=== PATIENT | female | born 1980 | race Caucasian/White ===

== ENCOUNTER 2019-11-17 11:23 | Emergency (ER) | payer SELFPAY ==
[2019-11-17 11:27] VITALS: BP 114/76; PULSE 75; RESP 18; TEMP 36.4; O2SAT 98; BMI 26.1
--- NOTE | 2019-11-17 11:37 | ED_ITS ---
HPI - Allergic Reaction General: Chief complaint: Allergic Reaction Stated complaint: poss poison sandrita Time Seen by Provider: 11/17/19 11:28 Source: patient Mode of arrival: ambulatory Limitations: no limitations History of Present Illness: HPI narrative: Patient is a 38-year-old female who states she is exposed to poison sandrita roughly 1 week ago. Patient states she has had poison sandrita now that spread to her face arms back and armpits. She states is very pruritic. Onset (ago): day(s) Associated symptoms: Deny abdominal pain, nausea or vomiting Severity: moderate Review of Systems Const: Denies: fever(s), chills, body aches or change in appetite Eyes: Denies: blurry vision or eye discomfort ENMT: Denies: throat pain or dental pain Card: Denies: chest pain Resp: Denies: dyspnea GI: Denies: abdominal pain, nausea, vomiting or diarrhea : Denies: dysuria Musc: Denies: neck pain or back pain Skin/Breast: Reports: rash Neuro: Denies: headache(s) Psych: Denies: depression Ari/Lymph: Denies: easy bruising All/Imm: Denies: urticaria PFSH ED PFSH: Social History Smoking and tobacco status: never smoked Physical Exam Const: COMMON NORMALS: no acute distress, patient oriented x3 and healthy appearing HENMT: COMMON NORMALS: normocephalic and atraumatic HEAD & SCALP: normocephalic and atraumatic Eye: COMMON NORMALS: Equal, round and reactive pupils present and EOMs intact bilaterally PUPIL: Yes Equal, round and reactive pupils present Neck/C-Spine: COMMON NORMALS: full ROM and supple Chest: COMMONS NORMALS: normal inspection of the chest and normal palpation of entire chest wall Resp: COMMON NORMALS: normal respiratory effort, No retractions, No use of accessory muscles and clear to auscultation bilaterally AUSCULTATION: clear to auscultation bilaterally Cardio: COMMON NORMALS: regular rate, regular rhythm and No murmurs present (Cardio) RATE: regular rate RHYTHM: regular rhythm GI: COMMON NORMALS: Normal to inspection, nondistended, normoactive bowel sounds present, Soft to palpation, non-tender and no masses PALPATION: Yes Soft to palpation Extremity: COMMON NORMALS: normal to inspection and full ROM Neuro: COMMON NORMALS: patient oriented x3, moves all extremities and no focal motor deficits Psych: COMMON NORMALS: mental status grossly normal, Normal thought process present and cooperative THOUGHT PROCESS: Normal thought process present Skin: COMMON NORMALS: no wounds NARRATIVE SKIN EXAM: Maculopapular rash to face trunk and arms consistent with poison sandrita. Course Vital Signs: Vital signs: Vital Signs Temperature 97.5 F L 11/17/19 11:27 Pulse Rate 75 11/17/19 11:27 Respiratory Rate 18 11/17/19 11:27 Blood Pressure 114/76 11/17/19 11:27 Pulse Oximetry 98 11/17/19 11:27 MDM - Allergic Reaction MDM Narrative: Medical decision making narrative: Patient presents here with poison sandrita will start patient on steroids and she is stable for discharge. She is to return if worsening. Discharge Plan Discharge Patient Disposition: Home, Self-Care Clinical Impression: Poison sandrita Condition: Stable Prescriptions: New prednisone 10 mg tablets,dose pack See Rx Instructions .ROUTE .COMPLEX Qty: 21 RF: 0 Discharge Orders: Discharge Order (Routine); Ordered 11/17/19 Ordered By: Agustín Hinson Discharge Diet: Advance as tolerated Discharge Activity: Resume usual activity Patient Instructions: Poison Sandrita (ED) Discharge Date/Time: 11/17/19 11:43 Coding Level of Care Code ED Heavy Equipment Operating Engineer for Vidhya Riojas
[2019-11-17] MEDS: diphenhydrAMINE 50 mg Capsule PO (11:38)
[2019-11-17] MEDS: predniSONE 20 mg Tablet 60 MG PO (11:38)
[2019-11-17 11:43] VITALS: BP 108/67; PULSE 75; RESP 16; O2SAT 100
== END 2019-11-17 11:43 | disposition home or self-care (01) ==
LOC: ER 11:38
PROVIDERS: Emergency Provider Emergency Medicine
DX: L23.7 Allergic contact dermatitis due to plants, except food (principal)
CPT/HCPCS: 12345; 99281; 99283; J7512; Q0163

== ENCOUNTER → 2023-06-20 09:27 | Outpatient (BNVA) | payer MEDICAID, SELFPAY | PROVIDERS: Visit Provider Nurse Practitioner Family | DX: R68.89 Other general symptoms and signs (principal); R09.81 Nasal congestion; J06.9 Acute upper respiratory infection, unspecified | CPT/HCPCS: 87400 ==

== ENCOUNTER → 2023-07-01 13:53 | Outpatient (BNVA) | payer MEDICAID, SELFPAY | PROVIDERS: Visit Provider Family Medicine | DX: J18.9 Pneumonia, unspecified organism (principal); J20.9 Acute bronchitis, unspecified | CPT/HCPCS: 71045; 71046 ==

== ENCOUNTER 2024-01-05 11:32 | Outpatient (CLI) | payer MEDICAID, SELFPAY ==
--- NOTE | 2024-01-05 11:40 | XRR_ITS ---
PROCEDURE INFORMATION: Exam: XR Thoracic Spine Exam date and time: 01/05/2024 11:49 AM Age: 43 years old Clinical indication: Pain in thoracic spine; Patient HX: Back periodically gives out and makes standing up straight painful, when standing up straight after it gives out left leg is shorter; Additional info: Acute low back pain/thoracic back pain TECHNIQUE: Imaging protocol: Radiologic exam of the thoracic spine. Views: 3 views. COMPARISON: CR XR lumbar spine min 4V [id number] 01/05/2024 11:49 AM FINDINGS: Bones/joints: Mild levoscoliosis at the thoracolumbar junction, a component of which may be positional. Vertebral heights and alignments are otherwise grossly maintained without evidence of acute fracture or subluxation. Detailed evaluation is limited by overlapping structures. Pedicles are grossly symmetric. Soft tissues: Grossly unremarkable. XR/XR thoracic spine min 4V [id number] IMPRESSION: 1. No evidence of fracture or subluxation of the thoracic spine.
--- NOTE | 2024-01-05 11:40 | XRR_ITS ---
PROCEDURE INFORMATION: Exam: XR Lumbosacral Spine Exam date and time: 01/05/2024 11:49 AM Age: 43 years old Clinical indication: Low back pain; Patient HX: Back periodically gives out and makes standing up straight painful, when standing up straight after it gives out left leg is shorter; Additional info: Thoracic back pain TECHNIQUE: Imaging protocol: Radiologic exam of the lumbosacral spine. Views: 4 or 5 views. COMPARISON: CR XR thoracic spine min 4V [id number] 01/05/2024 11:49 AM FINDINGS: Bones/joints: Mild-moderate multilevel facet arthrosis. No evidence of acute fracture or subluxation. The sacrum and coccyx are partially obscured by bowel gas/stool. Soft tissues: Grossly unremarkable. XR/XR lumbar spine min 4V [id number] IMPRESSION: 1. No evidence of fracture or subluxation of the lumbar spine. If there is ongoing clinical concern, consider correlation with CT.
== END 2024-01-05 11:33 | disposition home or self-care (01) ==
LOC: RAD 11:37
PROVIDERS: PCP Family Medicine; Visit Provider Nurse Practitioner Family
DX: M47.896 Other spondylosis, lumbar region (principal); M54.59 Other low back pain
CPT/HCPCS: 72074; 72110

== ENCOUNTER 2024-05-01 21:56 | Emergency (ER) | payer MEDICAID, SELFPAY ==
[2024-05-01 22:01] VITALS: BP 135/91; PULSE 85; RESP 16; TEMP 36.9; O2SAT 97; BMI 27.4
--- NOTE | 2024-05-01 22:10 | ECG_ITS ---
[facility] Test Date: 2024-05-01 Pat Name: Micaela Espinal Department: Room: Gender: Female Program Technician: : 1980 Requested By: Les Melgar Order Number: [id number] Lin MD: Glory Eaton M.D. Measurements Intervals [place] Rate: 90 P: 63 WV: 140 QRS: 19 QRSD: 88 T: 41 QT: 353 QTc: 432 Interpretive Statements SINUS RHYTHM No previous ECG available for comparison Electronically Signed On 05-02-2024 21:19:15 TRANSIT AUTHORITY POLICE OFFICER by Glory Eaton M.D. [email or web address]
--- NOTE | 2024-05-01 22:10 | XRR_ITS ---
PROCEDURE INFORMATION: Exam: XR Chest Exam date and time: 05/01/2024 10:22 PM Age: 43 years old Clinical indication: Pain; Chest pressure; Additional info: Cp TECHNIQUE: Imaging protocol: Radiologic exam of the chest. Views: 1 view. COMPARISON: CR XR chest 2V* [id number] 07/01/2023 2:03 PM FINDINGS: Lungs: Unremarkable. No consolidation. Pleural spaces: Unremarkable. No pleural effusion. No pneumothorax. Heart/Mediastinum: Unremarkable. No cardiomegaly. Bones/joints: Unremarkable. XR/XR chest 1V portable [id number] IMPRESSION: No acute findings.
--- NOTE | 2024-05-01 22:11 | ED_ITS ---
HPI - Chest Pain 2 General: Chief Complaint: Chest Pain Stated Complaint: chest tightness, right arm numb Time Seen by Provider: 05/01/24 22:03 Source: patient Mode of arrival: ambulatory Limitations: no limitations History of Present Illness: Patient is a 43-year-old female who presents to the emergency department complaining of substernal chest pain beginning tonight at around 2100 while lying in bed. Associated with some shortness of breath and radiation of pain to her right shoulder. She describes the pain as a light pressure, feeling like someone is putting a lot of the weight on her chest. She has no personal cardiac history including no history of heart attacks or strokes. Does report a positive family history of strokes. She states she had a similar episode of this pain 2 weeks ago, contacted her primary care and was told to go to the ER at that time for evaluation but states that she went home and did a breathing treatment for her history of asthma and states this helped at that time. She is stating the pain has been constant since onset, it is currently there at this time. Denies a history of acid reflux, and no specific alleviating or exacerbating factors noted at this time. She has not taken anything for her symptoms tonight. At this time her vitals are stable. She is anxious and tearful. MD complaint: chest pain Onset (ago): hour(s) Timing of current episode: constant and stable Prior episodes: Yes Onset: during rest Pain location: substernal Pain radiation: right arm and right shoulder Severity: moderate Quality: other ( Light pressure ) Relieving factors: nothing Exacerbating factors: nothing Associated symptoms: Reports dyspnea; Deny abdominal pain, fever(s), nausea, palpitations or vomiting Treatment prior to arrival: none Related Data Previous Rx's Medication Instructions Recorded albuterol sulfate 90 mcg/actuation 2 puff inhalation Q6H PRN 07/01/23 aerosol inhaler shortness of breath or wheezing #8.5 grams fluconazole 150 mg tablet 150 mg PO Q3D 2 doses #2 tabs 11/07/23 Allergies Allergy/AdvReac Type Severity Reaction Status Date / Time amoxicillin Allergy Unresponsiv Verified 11/07/23 14:41 e nalbuphine [From Nubain] Allergy ADR-Halluci Verified 11/07/23 14:41 nating Penicillins Allergy Unconscious Verified 11/07/23 14:41 poison daisy extract Allergy ALGY-Swell Verified 11/07/23 14:41 Lip/Tongue/Throat poison oak extract Allergy ALGY-Swell Verified 11/07/23 14:41 Lip/Tongue/Throat Sulfa (Sulfonamide Allergy ALGY-Hives Verified 11/07/23 14:41 Antibiotics) Review of Systems 2 General: Reports: 10 or more systems reviewed and unremarkable except in HPI and below Const: Denies: fever(s), chills or fatigue Eyes: Denies: change in vision ENMT: Denies: throat pain, ear or mastoid pain or nasal discharge Card: Reports: chest pain (With radiation to right shoulder and right upper extremity); Denies: palpitations, swelling of feet/ankles or lightheadedness Resp: Reports: dyspnea; Denies: productive cough or wheezing GI: Denies: abdominal pain, nausea, vomiting, diarrhea or constipation : Denies: flank pain, difficulty voiding, dysuria or urinary frequency Musc: Denies: neck pain or back pain Skin/Breast: Denies: rash Neuro: Denies: headache(s), numbness in extremities or weakness in extremities PFSH ED 2 PFSH: Medical History Repetitive strain injury of lower back History of kidney stones Surgical History History of tonsillectomy Family History Father No problems noted. Mother Hypertension Immunodeficiency disorder Social History Smoking and tobacco/nicotine status: never used tobacco/nicotine Alcohol intake: current Alcohol intake frequency: few times a week Alcohol type: beer Substance/Drug Use: never Physical Exam 2 Const: COMMON NORMALS: no acute distress and no limitations GENERAL APPEARANCE: cooperative, well developed and anxious O RIENTATION/CONSCIOUSNESS: Yes awake HENMT: COMMON NORMALS: normocephalic, atraumatic and hearing grossly normal bilaterally HEAD & SCALP: normocephalic and atraumatic Eye: COMMON NORMALS: Equal, round and reactive pupils present, EOMs intact bilaterally and conjunctivae normal CONJUNCTIVA: Yes conjunctivae normal P UPIL: Yes Equal, round and reactive pupils present Neck/C-Spine: COMMON NORMALS: full ROM, supple and no JVD Resp: COMMON NORMALS: normal respiratory effort, No retractions, No use of accessory muscles and clear to auscultation bilaterally AUSCULTATION: clear to auscultation bilaterally Cardio: COMMON NORMALS: no JVD, regular rate, regular rhythm, No clicks present (Cardio) and No rub (Cardio) RATE: regular rate RHYTHM: regular rhythm OTHER: 1/6 BABAR GI: COMMON NORMALS: Normal to inspection, nondistended, normoactive bowel sounds present, Soft to palpation and non-tender AUSCULTATION: Yes normoactive bowel sounds PALPATION: Yes Soft to palpation RECTAL EXAM: d eferred Extremity: COMMON NORMALS: normal to inspection, full ROM and capillary refill normal Psych: COMMON NORMALS: mental status grossly normal and Normal thought process present THOUGHT PROCESS: Normal thought process present Skin: COMMON NORMALS: no rashes or lesions noted GENERAL SKIN EXAM: no rashes or lesions noted Course 2 Vital Signs: Vital signs: Vital Signs Temperature 98.4 F 05/01/24 22:01 Pulse Rate 85 05/01/24 22:01 Respiratory Rate 16 05/01/24 22:01 Blood Pressure 135/91 05/01/24 22:01 Pulse Oximetry 97 05/01/24 22:01 Oxygen Delivery Me thod Room Air 05/01/24 22:01 MDM - Chest Pain Medical Decision Making Patient presented with chest pain beginning tonight while lying in bed. No cardiac history reported. Troponin negative EKG was normal and chest x-ray did not demonstrate any concerning findings. Rest of her lab work was normal. Notes some improvement after receiving a GI cocktail. At this time pain is likely noncardiac in nature, potential etiology includes musculoskeletal chest pain or GERD. For this, we will have her follow-up closely with primary care for further outpatient management, and to return if her pain persists or she has any new concerning symptoms. Her vitals have remained stable throughout ED course, and her physical examination overall was normal. Lab Data 05/01/24 22:05 05/01/24 22:05 Laboratory Results WBC 9.13 10^3/uL (3.29-11.43) 05/01/24 22:05 RBC 3.80 10^6/uL (3.85-5.65) L 05/01/24 22:05 Hgb 10.40 g/dL (11.27-16.99) L 05/01/24 22:05 Hct 33.4 % (36-47) L 05/01/24 22:05 MCV 87.9 fl (85-98) 05/01/24 22:05 MCH 27.4 pg (27-33) 05/01/24 22:05 MCHC 31.1 g/dL (30-55) 05/01/24 22:05 RDW 13.0 % (12.1-15.1) 05/01/24 22:05 Plt Count 300 10^3/cmm (157-399) 05/01/24 22:05 MPV 10.9 fL (7.4-10.4) H 05/01/24 22:05 Neut % (Auto) 64.8 % 05/01/24 22:05 Lymph % (Auto) 24.8 % 05/01/24 22:05 [place] % (Auto) 6.1 % 05/01/24 22:05 Eos % (Auto) 3.4 % 05/01/24 22:05 Baso % (Auto) 0.7 % 05/01/24 22:05 Neut # (Auto) 5.92 10^3/uL (1.8-7.7) 05/01/24 22:05 Lymph # (Auto) 2.3 10^3/uL (0.8-4.8) 05/01/24 22:05 [place] # (Auto) 0.6 10^3/uL (0.2-0.9) 05/01/24 22:05 Eos # (Auto) 0.3 10^3/uL (0.0-0.8) 05/01/24 22:05 Baso # (Auto) 0.1 10^3/uL (0.0-0.1) 05/01/24 22:05 Nucleated RBC % (auto) 0 % 05/01/24 22:05 Nucleated RBCs # 0.0 /100WBC 05/01/24 22:05 Sodium 138 mmol/L (136-145) 05/01/24 22:05 Potassium 3.9 mmol/L (3.5-5.1) 05/01/24 22:05 Chloride 105 mmol/L (98-107) 05/01/24 22:05 Carbon Dioxide 21 mmol/L (22-29) L 05/01/24 22:05 Anion Gap 15.9 (5-19) 05/01/24 22:05 BUN 11 mg/dL (6-20) 05/01/24 22:05 Creatinine 0.7 mg/dL (0.5-0.9) 05/01/24 22:05 GFR Calculation 91.8 mL/min (90-130) 05/01/24 22:05 Glucose 99 mg/dL (65-115) 05/01/24 22:05 Calculated Osmolality 285 mOsm/kg (285-295) 05/01/24 22:05 Calcium 9.1 mg/dL (8.5-10.5) 05/01/24 22:05 Total Bilirubin 0.2 mg/dL (0.15-1.2) 05/01/24 22:05 AST 15 U/L (0-32) 05/01/24 22:05 ALT 9 U/L (0-33) 05/01/24 22:05 Alkaline Phosphatase 57 U/L (35-105) 05/01/24 22:05 Troponin T Baseline < 6 ng/L (0-10) 05/01/24 22:05 Total Protein 7.1 g/dL (6.6-8.7) 05/01/24 22:05 Albumin 4.6 g/dL (3.5-5.2) 05/01/24 22:05 Globulin 2.5 g/dL (1.3-4.6) 05/01/24 22:05 Lipase 38 U/L (13-60) 05/01/24 22:05 HCG, Qual Negative (Negative) 05/01/24 22:05 XR interpretation done by ED provider, pending radiology final review ED provider radiology interpretation(s): Chest x-ray demonstrated no acute cardiopulmonary findings. EKG Data EKG 1: I personally reviewed and interpreted this EKG as follows: EKG interpretation date: 05/01/24 EKG interpretation time: 22:00 Prior EKG tracings: not available for review Interpretation: 2200: NSR. Rate 90. No acute ST segment changes. Reviewed with physician. Discharge Plan Discharge Patient Disposition: Home Clinical Impression: Non-cardiac chest pain Condition: Stable Prescriptions: No Action albuterol sulfate 90 mcg/actuation HFA aerosol inhaler 2 puff inhalation Q6H PRN (Reason: shortness of breath or wheezing) Qty: 8.5 0RF fluconazole 150 mg tablet 150 mg PO Q3D Qty: 2 0RF Rx Instructions: may repeat second dose 72 hrs after first dose if symptoms persist Discharge Orders: Discharge ED (Routine); Ordered 05/01/24 Ordered By: Les Briggs Referrals: Juliet Voss DO [Primary Care Provider] - Patient Instructions: Chest Pain - Noncardiac Activity Restrictions/Additional Instructions: Close follow-up with your primary care for further outpatient management and potential outpatient cardiac workup. Your lab work and imaging today was all normal. Keep in mind that if you continue to have symptoms or worsening of pain to return for further evaluation here in the emergency department. You may try [id number] Pepcid if this is indeed related to acid reflux. Coding Level of Care Code ED Chemist Instrumentation for Vidhya Riojas
[2024-05-01 22:15] LABS: Basophils # 0.1 10^3/uL (0.0-0.1); Basophils % 0.7 %; Eosinophils # 0.3 10^3/uL (0.0-0.8); Eosinophils % 3.4 %; Hematocrit 33.4 % (36-47); Lymphocytes # 2.3 10^3/uL (0.8-4.8); Lymphocytes % 24.8 %; Mean Corpuscular HGB Conc 31.1 g/dL (30-55); Mean Corpuscular Hemoglobin 27.4 pg (27-33); Mean Corpuscular Volume 87.9 fl (85-98); Mean Platelet Volume 10.9 fL (7.4-10.4); Monocytes # 0.6 10^3/uL (0.2-0.9); Monocytes % 6.1 %; Neutrophils # 5.92 10^3/uL (1.8-7.7); Neutrophils % 64.8 %; Nucleated Red Blood Cells % 0 %; Platelet Count 300 10^3/cmm (157-399); White Blood Count 9.13 10^3/uL (3.29-11.43)
[2024-05-01] MEDS: lidocaine 2% viscous 15 ML, aluminum-mag hydrox-simethicon 30 ML, sucralfate oral liq 1 GM PO (22:19)
[2024-05-01 22:24] LABS: HCG, Serum Qual Negative (Negative)
[2024-05-01 22:31] LABS: Troponin(5th) Baseline < 6 ng/L (0-10)
[2024-05-01 22:33] LABS: Alanine Aminotransferase 9 U/L (0-33); Albumin Level 4.6 g/dL (3.5-5.2); Alkaline Phosphatase 57 U/L (35-105); Anion Gap 15.9 (5-19); Aspartate Amino Transferase 15 U/L (0-32); Blood Urea Nitrogen 11 mg/dL (6-20); Calcium 9.1 mg/dL (8.5-10.5); Carbon Dioxide 21 mmol/L (22-29); Chloride 105 mmol/L (98-107); Creatinine Clr Calc Pharmacy 94.6638; Globulin 2.5 g/dL (1.3-4.6); Glomerular Filtration Rate 91.8 mL/min (90-130); Glucose 99 mg/dL (65-115); Lipase 38 U/L (13-60); Osmolality Calculated 285 mOsm/kg (285-295); Potassium 3.9 mmol/L (3.5-5.1); Sodium 138 mmol/L (136-145); Total Bilirubin 0.2 mg/dL (0.15-1.2); Total Protein 7.1 g/dL (6.6-8.7)
[2024-05-01 23:13] VITALS: BP 135/91; PULSE 87; O2SAT 86
== END 2024-05-01 23:00 | disposition home or self-care (01) ==
PROVIDERS: Emergency Provider Physician Assistant; PCP Family Medicine
DX: R07.89 Other chest pain (principal)
CPT/HCPCS: 71045; 80053; 83690; 84484; 84703; 85025; 93005; 99285

== ENCOUNTER 2024-05-08 12:00 | Outpatient (CLI) | payer MEDICAID, SELFPAY ==
--- NOTE | 2024-05-08 12:02 | MM_ITS ---
WS: [id number] Bilateral screening 3D tomosynthesis digital mammogram, 05/08/2024 12:11 PM Clinical Data: SCREENING Comparison: 10/15/2015, 02/05/2015. Findings: No spiculated masses or clustered calcifications are seen. There are no secondary signs of carcinoma . MM/MM scr BI tomosynthesis [id number] Impression: Negative bilateral mammogram unchanged. Recommend annual screening mammograms. BIRADS: 1 - Negative FOLLOW UP: 1 Year Follow-up DENSITY: The breasts are heterogeneously dense, which may obscure small masses. The CAD load checker was used
== END 2024-05-08 12:01 | disposition home or self-care (01) ==
PROVIDERS: PCP Family Medicine; Visit Provider Family Medicine
DX: Z12.31 Encounter for screening mammogram for malignant neoplasm of breast (principal)
CPT/HCPCS: 77063; 77067

== ENCOUNTER 2024-12-28 10:57 | Emergency (ER) | payer MEDICAID, SELFPAY ==
--- OUTSIDE RECORDS SUMMARY | 2023-01-30 03:39 | XMS_ITS | Continuity of Care Document ---
Author Organization [facility] Address [address] [place] [address] Phone Care Team Providers Care Psychiatric Tech Name Role Phone Alex HUMAN RESOURCES TRAINERRicarda Unavailable Unavailable Allergies, Adverse Reactions, Alerts Substance Reaction Status Criticality latex Active No Information Penicillins Active No Information POTASSIUM CLAVULANATE Active No Inf ormation AMOXICILLIN TRIHYDRATE Active No In formation Medications Medication Instructions Dosage Effective Dates (start - stop) Status Comments Medrol (Berry) 4 mg tablets in a dose pack take 1 Packet by Oral route as directed 1 Packet - No Longer Active triamcinolone acetonide 0.1 % topical cream apply by TOPICAL route 2 times every day a thin film to the affected skin areas until clear Not Available - No Longer Active Procedures Procedure Date OFFICE/OUTPATIENT VISIT, EST ADMIN INJ THERAPUTIC IM/SUBQ Dexamethasone sodium phos OFFICE/OUTPATIENT VISIT, EST Methylprednisolone injection Dexamethasone sodium phos OFFICE/OUTPATIENT VISIT, EST OFFICE/OUTPATIENT VISIT, EST OFFICE/OUTPATIENT VISIT, EST INFLUENZA ASSAY W/OPTIC URINALYSIS NONAUTO W/O SCOPE OFFICE/OUTPATIENT VISIT, EST Advance Directives Directive Yes / No Effective Date File Name No Information Encounters Encounter Description Practice Location Reason(s) For Visit Diagnoses Date Provider Providers Copied on Encounter OFFICE/OUTPA TIENT VISIT, EST [facility], [address] [place] [address], [facility], tel:[phone] *[facility] Urgent Care rash (chief complaint) Body mass index [BMI] 23.0-23.9, adultRhus dermatitis 3 Alex Chowdary. [address] [place], [place], . tel:[phone] OFFICE/OUTPA TIENT VISIT, [facility], [address] [place] [address], [facility], tel:[phone] *[facility] Rash (chief complaint) Rhus dermatitisBody mass index [BMI] 25.0-25.9, adultDietary counseling and surveillance 3 Alex Chowdary. [address] [place], [place], [place]. tel:[phone] [facility], [address] [place] [address], [facility], tel:[phone] *[facility] HivesANA positive 3 Alex Chowdary. [address] [place], [place]. tel:[phone] [facility], [address] [place] [address], [facility], tel:[phone] *[facility] PalpitationsPain, joint, shoulder, rightCervical radiculopathyNumbn ess and tingling in right handParesthesia of skin 3 Alex Chowdary. [address] [place], [place], [place]. tel:[phone] [facility], [address] [place] [address], [facility], tel:[phone] *[facility] Hives 3 lAex Chowdary. [address] [place], [place], [place]. tel:[phone] OFFICE/OUTPA TIENT VISIT, [facility], [address] [place] [address], [facility], tel:[phone] *[facility] Rash (chief complaint) Body mass index [BMI] 25.0-25.9, adultDietary counseling and surveillanceHivesP ain in right footPain in left footOn penitentiary drug therapy 3 Alex Chowdary. [address] [place], [place], [place]. tel:[phone] OFFICE/OUTPA TIENT VISIT, [facility], [address] [place] [address], [facility], tel:[phone] *[facility] Urgent Care rash (chief complaint) Body mass index [BMI] 25.0-25.9, adultDermatitisMul tiple complaints 3 Jett Sh[address] [place], [place], [facility], [place]. tel:[phone] OFFICE/OUTPA TIENT VISIT, [facility], [address] [place] [address], [facility], tel:[phone] *[facility] Urgent Care Eye problem (chief complaint) Atopic dermatitis of left eyelid 2 Alex Chowdary. [address] [place], [place]. tel:[phone] OFFICE/OUTPA TIENT VISIT, [facility], [address] [place] [address], [id number], tel:[phone] *[facility] Urgent Care nasal congestion (chief complaint) Nasal congestionBody mass index [BMI] 22.0-22.9, adultHematuria, unspecified typeHistory of kidney stonesBronchitis 2 Alex Chowdary. [address] [place], [place], [place]. tel:[phone] Family History Family Member Type Diagnosis Age At Onset No Information Payers Payer name Insurance type Covered democrat ID Authoriza tion(s) No Information Social History Type Description Quantity Date Captured Comments Alcohol Use Details Unknown Caffeine Use Details Unknown Tobacco Use Status Current non-smoker Smoking Status Never smoker Non-Smoking Tobacco Use Details : No Details Available : No Details Available Sex Female Gender Identity Female Vital Signs Date / Time: Height Weight BMI Pulse Rate Blood Pressure Temperature Respiratory Rate Body Surface Area Head Circumference Head Circ. Percentile Wt./Nickolas. Percentile BMI percentile Pulse Ox Inhaled Ox 8:42 AM 62.00 in 58.967 kg (130.00 lbs) 23.7 8 kg/m eter (2) 94 /min 114/75 mm[Hg] 98.30 F 20 /min 100 % Chief Complaint And Reason For Visit From encounter dated '01/30/2023 08:39'. rash (chief complaint). Description: Onset 5 days ago. Location is arm and leg. The patient describes it as erythematous and itchy. It occurs intermittently. The problem is with no change. Denies aggravating factors. Denies relieving factors. Associated factors include fatigue and sore throat. Pertinent negatives include fever. Comments: COUGH, DYSPNEA and WHEEZING patient states is related to reaction to rash. Reason For Referral Reason For Referral No Information Plan Of Treatment Date Type Action Status Goal Dietary management education , guidance, and counseling completed Goal Dietary management education , guidance, and counseling completed Goal Dietary management education , guidance, and counseling completed Goal Dietary management education , guidance, and counseling completed Goal Dietary management education , guidance, and counseling completed Goal Dietary management education , guidance, and counseling completed Goal Dietary management education , guidance, and counseling completed Goal Dietary management education , guidance, and counseling completed Referral Ordered: Referrals: Rheumatology. Location: [facility]. Evaluate and treat ordered Referral Referred To: [facility] [address] [place], [address] [phone] Ordered: Referrals: Dermatology. [facility]. Evaluate and treat ordered History Of Present Illness Encounter Date Complaint History Of Prese nt Illness rash Onset 5 days ago . Location is arm and leg. The patient describes it as erythematous and itchy. It occurs intermittently. The problem is with no change. Denies aggravating factors. Denies relieving factors. Associated factors include fatigue and sore throat. Pertinent negatives include fever. Comments: COUGH, DYSPNEA and WHEEZING patient states is related to reaction to rash. Rash The client prese nts for Rash. The symptom(s) are described as moderate, worse and occurs only with exposure to irritating agent. Affected area(s) are scattered on the body including both hands, chest, back, right thigh and right calf. The patient describes the affected area(s) as burning, itchy, oozing, red, scaly and stinging. The symptoms are associated with contact with plants (poison oak). Aggravating factors include clothing, skin trauma/friction and sweating. Relieving factors include topical steroids. Associated symptoms include cracking, crusting, erythema (skin), painful rash, pruritus and scaling. Pertinent negatives include easy bleeding, bleeding skin, dry skin, edema, fatigue, hyperpigmentation, hypopigmentation, myalgia, pharyngitis and urticaria. Rash The patient pres ents for Rash. This episode began 1 month ago. The symptom(s) are described as moderate, unchanged and occurs continuously. Affected area(s) are scattered on the body including face, neck, left arm, both thighs and both calves, and is spreading. Intertriginous areas are not affected. The patient describes the affected area(s) as itchy, red and stinging. The symptoms are associated with recent travel. The symptoms are not associated with contact with chemicals, contact with plants, new perfume, new skin soaps/lotions, rash began before age 3, recent medicines and stress. Denies aggravating factors. Associated symptoms include erythema (skin) and pruritus. Pertinent negatives include bleeding, bleeding skin, cracking, crusting, dry skin, edema, fatigue, hyperpigmentation, hypopigmentation, myalgia, painful rash, pharyngitis, scaling and urticaria. Additional information: Pt states she was at a concert about a month ago, States she felt a bite and since then the areas have been spreading. rash Location is arm and leg. Pertinent negatives include diarrhea, fatigue, fever, headache, joint symptoms, kerion(s) in scalp, pain, sore throat, urticaria and vomiting. Comments: pt c/o occasional right shoulder pain, bilateral feet pain. Feels like feet are twisting when sleepsareas come and go to left wrist, and lower legs and will start as itch then will burnno pus. Eye problem The symptoms beg an 1 month ago. Pt states since she got eye lash ext placed 1 month she has been having swelling, watery eyes, white drainage, and pain. States she had them changed a few days ago and changed the glue but still having issues. nasal congestion Onset: 5 Days. The severity of the problem is moderate. The problem has worsened. Pertinent/initial symptoms include bloody sinus drainage, facial pain, facial pressure, sinus congestion, sinus pain and sinus pressure. Aggravating factors include lying down. Denies relieving factors. Associated symptoms include cough, headache, nasal drainage, nasal obstruction, postnasal drainage, rhinorrhea and sinus pressure. Functional Status Date Functional Assessmen t No Information Instructions Date Instruction Additional Infor panchito Aveeno bath. OTC ant ihistamine. Complete full dose of steroid. RTC or f/u with PCP if s/s do not improve in 48-72 hours.IM steroid in UC. Start medrol pack tomorrow. Related to Rhus dermatitis Dietary management e ducation, guidance, and counseling Related to Body mass index [BMI] 23.0-23.9, adult Giving encouragement to exercise Related to Body mass index [BMI] 23.0-23.9, adult IM steroid in office . Start oral steroid Monday. Aveeno bath. OTC antihistamine. Complete full dose of steroid. RTC or f/u with PCP if s/s do not improve in 48-72 hours. Related to Rhus dermatitis Dietary management e ducation, guidance, and counseling Related to Body mass index [BMI] 25.0-25.9, adult Dietary management e ducation, guidance, and counseling Related to Dietary counseling and surveillance Dietary management e ducation, guidance, and counseling Related to Body mass index [BMI] 25.0-25.9, adult Will do additional s teroid burst with antihistamine - start after getting labs done. Will notify with lab results. Related to Hives States pain is at ni ght only and feels like her feet are being twisted . Related to Pain in right foot Dietary management e ducation, guidance, and counseling Related to Dietary counseling and surveillance Dietary management e ducation, guidance, and counseling Related to Body mass index [BMI] 25.0-25.9, adult explained this is UC she needs to follow up with a PCP for labs and further testing, many different complaints including generalized itching, occasional right shoulder pain and feet pain at night as well as areas appear to be bug bites that come up occasionalstates will make appt with Ricarda Johnson Related to Multiple complaints will send script to pharmacy, apply at first appearance of areastry to see health care management specialist when they appear Related to Dermatitis Dietary management e ducation, guidance, and counseling Related to Body mass index [BMI] 25.0-25.9, adult Giving encouragement to exercise Related to Body mass index [BMI] 25.0-25.9, adult Topical Elidel to ey elid as prescribed. Short steroid burst, OTC antihistamine to help with itching. Recommended taking off false eyelashes and using growth serum. She is going to consider this. Use warm compresses and do not pick at site. Related to Atopic dermatitis of left eyelid Will culture urine a nd do KUB today due to hematuria and history of stones. Related to Hematuria, unspecified type Patient educated to rest, if fever presents to follow OTC medication regimen for fever, avoid contact with others, wash hands frequently, drink plenty of fluids and report any changes in condition. Take medications as prescribed and report any changes. COVID negative. To ED or call 911 with any distress/shortness of breath. Related to Bronchitis Dietary management e ducation, guidance, and counseling Related to Body mass index [BMI] 22.0-22.9, adult Giving encouragement to exercise Related to Body mass index [BMI] 22.0-22.9, adult Assessments Type Assessment Date assessment Body mass index [BMI] 23.0-23.9, adult assessment Rhus dermatitis Mental Status Date Cognitive Assessment Orientation - Gueydan ed to time, place, person, situation. Patient Care Teams Name Effective Dates (start - stop) Status Members No Information
[2024-12-28 11:00] VITALS: BP 133/83; PULSE 83; RESP 15; TEMP 36.7; O2SAT 98; BMI 23.8
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
--- NOTE | 2024-12-28 11:24 | CTR_ITS ---
PROCEDURE INFORMATION: Exam: CT Chest Without Contrast; Diagnostic Exam date and time: 12/28/2024 11:42 AM Age: 44 years old Clinical indication: Injury or trauma; Fall; Blunt trauma (contusions or hematomas); Additional info: Traumatic chest pain TECHNIQUE: Imaging protocol: Diagnostic computed tomography of the chest without contrast. Radiation optimization: All CT scans at this facility use at least one of these dose optimization techniques: automated exposure control; mA and/or kV adjustment per patient size (includes targeted exams where dose is matched to clinical indication); or iterative reconstruction. COMPARISON: CR XR chest 1V portable [id number] 05/01/2024 10:22 PM RADIATION DOSE METRICS: Total DLP (mGy-cm): 254.91 FINDINGS: Lungs: Unremarkable. No consolidation. No masses. Pleural spaces: Unremarkable. No pneumothorax. No pleural effusion. Heart: Unremarkable. No cardiomegaly. No pericardial effusion. Coronary arteries: No coronary artery calcifications are identified. Lymph nodes: Unremarkable. No enlarged lymph nodes. Vasculature: Unremarkable. No aortic aneurysm. Diaphragm: A small hiatal hernia is present. Liver: There is a 7 mm hypodensity in the left lobe of the liver that is too small to characterize on this noncontrast study. Although evaluation is limited on this exam, the appearance suggests either a small hemangioma or cyst. Bones/joints: There is a nondisplaced fracture of the lateral right 9th rib. No segmental rib fracture. No acute fracture in the thoracolumbar spine. Soft tissues: There is soft tissue edema adjacent to the right 9th rib fracture. CT/CT chest [facility] [id number] IMPRESSION: 1. There is a nondisplaced fracture of the lateral right 9th rib. No segmental rib fracture. 2. No additional acute abnormality.
[2024-12-28 11:32] VITALS: BP 117/76; PULSE 79; O2SAT 99
[2024-12-28 12:32] VITALS: BP 114/76; PULSE 72; O2SAT 96
[2024-12-28 13:05] VITALS: BP 118/83; PULSE 79; O2SAT 93
== END 2024-12-28 13:05 | disposition home or self-care (01) ==
PROVIDERS: Emergency Provider Emergency Medicine; PCP Family Medicine
DX: S22.31XA Fracture of one rib, right side, initial encounter for closed fracture (principal); Y09 Assault by unspecified means; X58.XXXA Exposure to other specified factors, initial encounter
CPT/HCPCS: 71250; 99284

== ENCOUNTER → 2025-04-28 18:21 | Outpatient (BNVA) | payer MEDICAID, SELFPAY | PROVIDERS: PCP Family Medicine; Visit Provider Family Medicine | DX: Z72.51 High risk heterosexual behavior (principal); R39.89 Other symptoms and signs involving the genitourinary system; R30.0 Dysuria | CPT/HCPCS: 81000; 87491; 87591; 87661 ==